=== PATIENT | female | born 1965 ===

== ENCOUNTER 2021-05-02 23:01 | Emergency (ER) | payer MEDICARE, BC ==
[~2021-05-02] VITALS: Ht 167.6 cm; Wt 99.1 kg
[2021-05-02 23:10] VITALS: BP 161/88
== END 2021-05-03 06:47 | disposition left against medical advice (07) ==
LOC: ER 23:02
DX: M79.642 Pain in left hand (principal); Z53.21 Procedure and treatment not carried out due to patient leaving prior to being seen by health care provider
CPT/HCPCS: 73130